=== PATIENT | male | born 1955 | race Caucasian/White ===

== ENCOUNTER 2020-12-16 08:24 | Outpatient (REF) | payer MEDICARE, MEDICAID, SELFPAY ==
[2020-12-16 11:49] LABS: Alanine Aminotransferase 24 U/L (0-40); Anion Gap 12 (12-20); Aspartate Amino Transferase 19 U/L (5-37); Blood Urea Nitrogen 10 mg/dL (9-16); Calcium 9.1 mg/dL (8.4-10.2); Carbon Dioxide 28 mmol/L (22-29); Chloride 105 mmol/L (96-108); Cholesterol 160 mg/dL; Estimated Glomerular Filt Rate > 60; Glucose Fasting 90 mg/dL (60-99); HDL Cholesterol 44 mg/dL; LDL Cholesterol Calculated 90 mg/dl; Potassium 4.7 mmol/L (3.3-5.1); Sodium 140 mmol/L (135-145); Triglycerides 131 mg/dL
[2020-12-16 13:44] LABS: PSA,Total (Free>4and<10) 1.96 ng/mL (0.00-4.00)
== END 2020-12-16 08:25 | disposition home or self-care (01) ==
LOC: HO.HMGCLDS 08:24
PROVIDERS: PCP Internal Medicine; Visit Provider Internal Medicine
DX: Z00.01 Encounter for general adult medical examination with abnormal findings (principal); I10 Essential (primary) hypertension
CPT/HCPCS: 36415; 80048; 80061; 84153; 84450; 84460

== ENCOUNTER → 2021-01-12 10:36 | Outpatient (BNVA) | payer MEDICARE, MEDICAID, SELFPAY | PROVIDERS: PCP Internal Medicine; Visit Provider Family Medicine Adult Medicine ==

== ENCOUNTER → 2021-07-20 13:33 | Outpatient (BNVA) | payer MEDICARE, MEDICAID, SELFPAY | PROVIDERS: PCP Internal Medicine; Visit Provider Orthopaedic Surgery | DX: M65.321 Trigger finger, right index finger (principal) | CPT/HCPCS: 99202 ==

== ENCOUNTER 2021-10-14 11:07 | Day surgery (SDC) | payer MEDICARE, MEDICAID, SELFPAY ==
[2021-10-14 12:07] VITALS: BP 159/80; PULSE 92; RESP 18; TEMP 37.4; O2SAT 96; BMI 24.3
--- NOTE | 2021-10-14 14:50 | MHC.SHP ---
Pre-Procedural Eval Section A Date of Service: 10/14/21 The patient is an INPATIENT: No Changes since office visit: No Cold of Flu in the past 2 weeks, No New Medical Problems, No Changes in Medication and No Patient answered all questions The History & Physical has been completed within 30 days and I have reviewed it.: Yes Section B Chief Complaint: Trigger finger, right index finger Allergies: Allergies Allergy/AdvReac Type Severity Reaction Status Date / Time Doxycycline Calcium Allergy Unknown Abdominal Verified 08/23/21 02:37 Pain Plan I have reviewed the history and physical and performed a pertinent physical examination on my patient. No changes have occurred unless specified.
--- NOTE | 2021-10-14 14:51 | W.PM.OPN ---
Operative Note Operative Note Date of Service: 10/14/21 Narrative: Operative Note Preop diagnosis: 1. right hand indexfinger Trigger finger Postop diagnosis: 1. type right index finger Trigger finger Procedure: 1. right index finger A1 kimberly release Surgeon: Evelyn Delarosa MD Anesthesia: local block using 1% lidocaine with epinephrine Findings: No locking or catching after A1 kimberly release EBL: Less than 5 mL Tourniquet time: None Specimens: None Complications: None Disposition: Brought to recovery room in stable condition Plan: Follow-up for 10-14 days for wound check and suture removal Indications: The patient is 65 years old, with a right index finger trigger finger that has been unresponsive to nonoperative management. The risks and benefits of operative treatment including but not limited to risk of damage to blood vessels, nerves, tendons, infection, persistent pain, persistent symptoms, recurrence or possible need for additional surgery were discussed with the patient and the patient wishes to proceed with surgery. Procedure: Once consent was obtained a local block was performed in the preop area using a combination of 1% lidocaine with epinephrine. The patient was then brought back to the operating suite and placed on the operative table in supine position. A tourniquet was applied to the proximal aspect of the right upper extremity and the limb was prepped and draped in a standard surgical fashion. Once assured that we had a good block, a 1.5 cm oblique incision was made centered over the A1 kimberly of the right index finger . The incision was made through the skin to the subcutaneous tissues using a #15 blade. Careful dissection was made down to the level of the A1 kimberly using tenotomy scissors, with care being taken to protect the nearby neurovascular structures. A longitudinal incision was made in the A1 kimberly 1st using a #15 blade, then using tenotomy scissors under direct visualization. The A1 kimberly was noted to be thickened. Following our A1 kimberly release, we no longer saw any locking or catching of the digit with flexion and extension. Once satisfied with our A1 kimberly release the wound was copiously irrigated with normal saline and hemostasis was obtained with a brief period of local pressure. The skin edges were reapproximated with some 5.0 nylon suture material and a sterile dressing was applied. The patient appears to have tolerated the procedure well and with no complications. All digits were well vascularized at the conclusion of the case.
[2021-10-14 15:28] VITALS: BP 161/97; PULSE 84; RESP 20; TEMP 36.7; O2SAT 96
== END 2021-10-14 15:41 | disposition home or self-care (01) ==
PROVIDERS: PCP Internal Medicine; Visit Provider Orthopaedic Surgery
PROC: (CPT 26055; principal; 2021-10-14 12:50)
DX: M65.321 Trigger finger, right index finger (principal); M19.011 Primary osteoarthritis, right shoulder; F41.8 Other specified anxiety disorders; R42 Dizziness and giddiness; Z79.891 Long term (current) use of opiate analgesic
CPT/HCPCS: 26055; J0171; J2795

== ENCOUNTER → 2021-10-27 11:40 | Outpatient (BNVA) | payer MEDICARE, MEDICAID, SELFPAY | PROVIDERS: PCP Internal Medicine; Visit Provider Orthopaedic Surgery | DX: Z09 Encounter for follow-up examination after completed treatment for conditions other than malignant neoplasm (principal); Z87.39 Personal history of other diseases of the musculoskeletal system and connective tissue | CPT/HCPCS: 99212 ==

== ENCOUNTER 2022-09-07 12:50 | Outpatient (AMB) | payer MEDICARE, MEDICAID, SELFPAY ==
--- NOTE | 2022-09-07 13:12 | MHC.PC.OV ---
Vital Signs 09/07/22 13:16 Height 5 ft 8 in Weight 168 lb BMI 25.5 BP 132/90 H Blood Pressure Location Rt brachial Position Sitting Pulse 75 Pulse Source Pulse Oximeter Pulse Oximetry (%) 98 Oxygen Delivery Method Room Air Intake Visit Reasons: Both ears blocked-ear cleaning Intake Note: Pt is here today for bilateral blocked ear Allergies Doxycycline Calcium Allergy (Unknown, Verified 09/07/22 13:59) Abdominal Pain Medication List - Last Reconciled 09/07/22 by Azeb Lee MD doxylamine succinate (Unisom (doxylamine)) 25 mg PO BEDTIME PRN hydroxyzine HCl 10 mg PO BID PRN melatonin 10 mg PO BEDTIME PRN multivitamin 1 tab PO DAILY Tobacco use date assessed: 09/07/22 Fall risk assessment: No Falls in past year Last assessed Fall Risk: 09/07/22 Dental Screening Dental Screen Date: 09/07/22 Did you have a dental visit in the last 12 months?: Yes Did you have a dental problem in the last 6 months where you did not have access to dental care?: No Was dental information given to patient?: Patient has dentist HPI Both ears blocked-ear cleaning HPI Details [age]-year-old male here today complaining of bilateral ear wax buildup, accompanied by slight decrease in hearing in both ears. Problems with gait or balance [facility] Medical History (Updated 09/07/22 @ 14:00 by Azeb Lee MD) Altered taste Anxiety Chronic use of opiate drug for therapeutic purpose COVID-19 vaccine series declined Depression with anxiety Essential hypertension Impacted cerumen, bilateral Lumbar spinal stenosis Positional lightheadedness Vaccination declined by patient Vertigo Surgical History History of arthroscopy of right shoulder S/P trigger finger release Family History Other No significant family history Social History Housing: House Patient Tobacco Use Status: Never used Tobacco e-Cigarette/Vaping Use: Never Used Second Hand Smoke Exposure: No service: No Current occupational status: retired Cognitive needs: No Hearing needs: No Vision needs: Yes Questionnaire Thrive Questionnaire Date Thrive assessed: 09/07/22 I am a: Patient What is your living situation today?: I have a steady place to live Within the past 12 months, did the food you bought not last and you didn't have the money to get more?: Never true Within the past 12 months, did you worry whether your food would run out before you got money to buy more?: Never true Do you have trouble paying for medicines?: No Do you have trouble getting transportation to medical appointments?: No Do you have trouble paying your heating and electricity bill?: No Do you have trouble taking care of your child, family member or friend?: No Do you have trouble with day-to-day activities such as bathing, preparing meals, shopping, managing finances, etc.?: No Are you currently unemployed and looking for a job?: No Are you interested in more education?: No AUDIT C Alcohol Use Questionnaire (AUDIT-C) 1. How often do you have a drink containing alcohol?: Monthly or less 2. How many drinks containing alcohol do you have on a typical day when you are drinking?: 1 or 2 3. How often do you have six or more drinks on one occasion?: Never Total Score: 1 ANNMARIE-7 AMB Questionnaire ANNMARIE-7 Date ANNMARIE - 7 assessed: 12/03/20 Source: Developed by Drs. Mason Devine, Becky Jay, Antonio Renee and colleagues, with an educational lexus from [employer]. Review of Systems Const All systems reviewed & are unremarkable except as noted in HPI and below Physical exam (Primary Care) Vital Signs: Last Vital Signs Pulse 75 09/07/22 13:16 BP 132/90 H 09/07/22 13:16 Pulse Ox 98 09/07/22 13:16 Oxygen Delivery Method Room Air 09/07/22 13:16 BMI result Body Mass Index 25.5 Tobacco/Smoking Status: Tobacco use Status Tobacco use date assessed 09/07/22 09/07/22 13:14 Patient Tobacco Use Status Never used Tobacco 09/07/22 13:14 e-Cigarette/Vaping Use Never Used 09/07/22 13:14 Thrive Assessment: Date of Thrive Assessment Date Thrive assessed 09/03/20 09/07/22 13:14 Const Other: Alert oriented x3, no acute distress noted ambulatory normal gait HENMT Ears: external ears normal and Abnormal EAC present excessive cerumen bilateral Assessment and Plan Assessment & Plan (1) Impacted cerumen, bilateral: Code(s): H61.23 - Impacted cerumen, bilateral Plan Cerumen successfully removed through warm ear irrigation, patient tolerated procedure well, advised to avoid putting Q-tips inside ear canal Coding Level of Care Code Est Pt Level 3 (55967) Diagnoses Impacted cerumen, bilateral H61.23
[2022-09-07 13:16] VITALS: BP 132/90; PULSE 75; O2SAT 98; BMI 25.5
== END 2022-09-07 14:10 | disposition home or self-care (01) ==
PROVIDERS: PCP Internal Medicine; Visit Provider Internal Medicine
DX: H61.23 Impacted cerumen, bilateral (principal)
CPT/HCPCS: 99213

== ENCOUNTER 2023-01-19 10:00 | Outpatient (AMB) | payer MEDICARE, MEDICAID, SELFPAY ==
[2023-01-19 10:15] VITALS: BP 130/85; PULSE 100; O2SAT 98; BMI 26.0
--- NOTE | 2023-01-19 10:15 | MHC.PC.OV ---
Vital Signs 01/19/23 10:15 Height 5 ft 8 in Weight 171 lb 2 oz BMI 26.0 BP 130/85 Blood Pressure Location Rt brachial Position Sitting Pulse 100 Pulse Source Pulse Oximeter Pulse Oximetry (%) 98 Oxygen Delivery Method Room Air Intake Visit Reasons: PE Intake Note: Pt is here for his Annual PE Allergies Doxycycline Calcium Allergy (Unknown, Verified 01/19/23 10:49) Abdominal Pain Medication List - Last Reconciled 01/19/23 by Azeb Lee MD doxylamine succinate (Unisom (doxylamine)) 25 mg PO BEDTIME PRN hydroxyzine HCl 10 mg PO BID PRN melatonin 10 mg PO BEDTIME PRN multivitamin 1 tab PO DAILY Tobacco use date assessed: 01/19/23 Fall risk assessment: No Falls in past year Last assessed Fall Risk: 01/19/23 Dental Screening Dental Screen Date: 01/19/23 Did you have a dental visit in the last 12 months?: Yes Did you have a dental problem in the last 6 months where you did not have access to dental care?: No Was dental information given to patient?: Patient has dentist HPI PE HPI Details 67 year old male, here today for his physical exam. He has been complaining of intermittent episodes of positional lightheadedness especially when he stands up quickly. Would like a referral to [facility] in [place] for vestibular rehab. Referral sent. He is up-to-date with his COVID vaccine, Prevnar 20 and flu shot, but has not yet had his RSV vaccine or shingles vaccination. He states that he is up-to-date with his screening colonoscopy , was done by Dr. Sinha. [facility] Medical History (Updated 01/19/23 @ 11:09 by Azeb Lee MD) Positional lightheadedness Anxiety Chronic use of opiate drug for therapeutic purpose Vaccination declined by patient Depression with anxiety Lumbar spinal stenosis Essential hypertension Vertigo Surgical History S/P trigger finger release History of arthroscopy of right shoulder Family History Other No significant family history Social History Housing: House Patient Tobacco Use Status: Never used Tobacco e-Cigarette/Vaping Use: Never Used Second Hand Smoke Exposure: No service: No Current occupational status: retired Cognitive needs: No Hearing needs: No Vision needs: Yes Questionnaire PHQ-9 Over the last 2 weeks, how often have you been bothered by any of the following problems? 1. Little interest or pleasure in doing things: several days 2. Feeling down, depressed, or hopeless: not at all 3. Trouble falling or staying asleep, or sleeping too much: nearly every day 4. Feeling tired or having little energy: several days 5. Poor appetite or overeating: more than half the days 6. Feeling bad about yourself - or that you are a failure or have let yourself or your family down: not at all 7. Trouble concentrating on things, such as reading the newspaper or watching television: not at all 8. Moving or speaking so slowly that other people could have noticed. Or the opposite - being so fidgety or restless that you have been moving around a lot more than usual: not at all 9. Thoughts that you would be better off or of hurting yourself in some way: not at all Total score: 7 Depression Screening Interpretation: Negative Depression Screening Done: Yes 92999 - PHQ-9 Billing: Yes Source: Developed by Drs. Mason Devine, Becky Jay, Antonio Renee and colleagues, with an educational lexus from [employer]. Thrive Questionnaire Date Thrive assessed: 01/19/23 I am a: Patient What is your living situation today?: I have a steady place to live Within the past 12 months, did the food you bought not last and you didn't have the money to get more?: Never true Within the past 12 months, did you worry whether your food would run out before you got money to buy more?: Never true Do you have trouble paying for medicines?: No Do you have trouble getting transportation to medical appointments?: No Do you have trouble paying your heating and electricity bill?: No Do you have trouble taking care of your child, family member or friend?: No Do you have trouble with day-to-day activities such as bathing, preparing meals, shopping, managing finances, etc.?: No Are you currently unemployed and looking for a job?: No Are you interested in more education?: No AUDIT C Alcohol Use Questionnaire (AUDIT-C) 1. How often do you have a drink containing alcohol?: Monthly or less 2. How many drinks containing alcohol do you have on a typical day when you are drinking?: 1 or 2 3. How often do you have six or more drinks on one occasion?: Never Total Score: 1 ANNMARIE-7 AMB Questionnaire ANNMARIE-7 Date ANNMARIE - 7 assessed: 01/19/23 Feeling nervous, anxious, or on edge: 1 = Several days Not being able to stop or control worryin = Not at all Worrying too much about different things: 0 = Not at all Trouble relaxin = Not at all Being so restless that it is hard to sit still: 0 = Not at all Becoming easily annoyed or irritable: 0 = Not at all Feeling afraid as if something awful might happen: 0 = Not at all Total ANNMARIE-7 score (0-4 normal; 5-9 mild; 10-14 moderate; 15-21 severe): 1 Source: Developed by Drs. Mason Devine, Becky Jay, Antonio Renee and colleagues, with an educational lexus from [employer]. ANNMARIE-7 Assessment Billing ANNMARIE-7 Assessment Tool: ANNMARIE-7 Assessment 02287 Review of Systems Const Denies body aches, Denies fever(s) and Denies frequent falls Eyes Details: Wears corrective lenses, followed at [facility] Denies change in vision ENT Reports no additional complaints Card Denies chest pain, Denies lightheadedness and Denies dyspnea Resp Denies cough and Denies dyspnea GI Denies abdominal pain, Denies change in bowel habits and Denies heartburn Reports no additional complaints Musc Reports stiffness (Fingers in right) Skin/Breast Denies lesions and Denies rash Neuro Reports as per HPI and Denies frequent falls Psych Reports no additional complaints Endo Reports no additional complaints Ronnie/Lymph Reports no additional complaints Aller/Immun Reports no additional complaints Physical exam (Primary Care) Vital Signs: Last Vital Signs Pulse 100 01/19/23 10:15 BP 130/85 01/19/23 10:15 Pulse Ox 98 01/19/23 10:15 Oxygen Delivery Method Room Air 01/19/23 10:15 BMI result Body Mass Index 26.0 Tobacco/Smoking Status: Tobacco use Status Tobacco use date assessed 01/19/23 01/19/23 10:20 Patient Tobacco Use Status Never used Tobacco 01/19/23 10:20 e-Cigarette/Vaping Use Never Used 01/19/23 10:20 PHQ-9: PHQ-9 Score PHQ-9: Total score 2 01/19/23 11:12 Depression Screening Interpretation: Negative Thrive Assessment: Date of Thrive Assessment Date Thrive assessed 09/07/22 01/19/23 10:20 Const General: comfortable, no acute distress and alert Orientation/consciousness: patient oriented x3 HENMT Ears: external ears normal, TM's normal bilaterally and EAC's normal General nose exam: Normal external nose present and No nasal discharge present Mouth: Normal oral and palatal mucosa present, oropharynx normal and moist mucous membranes Eyes General: appearance normal, both eyes and all related structures Conjunctivae: conjunctivae normal Sclerae: sclerae normal Pupils: Equal, round and reactive pupils present EOM: EOMs intact bilaterally Neck Neck: Yes full ROM, Yes no lymphadenopathy and Yes supple Resp Effort & Inspection: normal respiratory effort and able to speak in complete sentences Auscultation: clear to auscultation bilaterally Cardio Rate: regular rate Rhythm: regular rhythm Heart sounds: S1 normal heart sound present and S2 normal heart sound present GI Palpation (GI): Soft to palpation, nontender, no guarding and no masses Auscultation: normal bowel sounds Back/Spine/Pelvis Back: No back tenderness Skin General skin exam: no rashes or lesions noted Neuro General: patient oriented x3, gait normal, tone normal, moves all extremities, Normal light touch and pain sensation and no focal motor deficits Cranial nerves: Yes CN's II-XII intact bilaterally and Yes Equal, round and reactive pupils present Cognition (Neuro): normal cognition Extrem General: Yes full ROM, Yes no joint enlargement, Yes no clubbing, cyanosis or edema and Yes no calf tenderness Psych Appearance: grossly normal and well kempt Mental Status: mental status grossly normal Speech and movement: Normal speech and movement present Affect: normal affect Attitude: cooperative Assessment and Plan Assessment & Plan (1) Annual visit for general adult medical examination with abnormal findings: Code(s): Z00.01 - Encounter for general adult medical examination with abnormal findings Plan: Will check appropriate labs. Continue record dental visit every 6 months and regular eye exams, at least every 2 years. Take adequate calcium in diet and vitamin-D 3 at 2000 IU per cap once a day, in addition to weight-bearing exercises to help maintain good muscle tone and weight control. Instructed to do self testicular exam to check for any mass, up-to-date with his COVID vaccine booster, flu shot and pneumonia vaccine, reminded to get his RSV vaccine and shingles vaccination. Patient states that he is up-to-date with his screening colonoscopy, seen by Dr. Sinha (2) Positional lightheadedness: Code(s): R42 - Dizziness and giddiness Plan: Referral already ordered for [facility] in [place] for vestibular rehab, to rule out benign positional vertigo (3) Essential hypertension: Code(s): I10 - Essential (primary) hypertension Plan: Blood pressure at goal of less than 130/80. Reinforced importance of following a low sodium diet, getting regular exercise, and lowering stress levels. Orders: Orders Lipid Panel Today F41.9 - Anxiety disorder, unspecified, I10 - Essential (primary) hypertension, R42 - Dizziness and giddiness, Z00.01 - Encounter for general adult medical examination with abnormal findings PSA,Total (Free>4and<10) Today F41.9 - Anxiety disorder, unspecified, I10 - Essential (primary) hypertension, R42 - Dizziness and giddiness, Z00.01 - Encounter for general adult medical examination with abnormal findings Aspartate Amino Transferase Today F41.9 - Anxiety disorder, unspecified, I10 - Essential (primary) hypertension, R42 - Dizziness and giddiness, Z00.01 - Encounter for general adult medical examination with abnormal findings Glucose Fasting Today F41.9 - Anxiety disorder, unspecified, I10 - Essential (primary) hypertension, R42 - Dizziness and giddiness, Z00.01 - Encounter for general adult medical examination with abnormal findings PT Evaluation and Treatment Today R42 - Dizziness and giddiness Complete Blood Count Auto Diff Today F41.9 - Anxiety disorder, unspecified, I10 - Essential (primary) hypertension, R42 - Dizziness and giddiness, Z00.01 - Encounter for general adult medical examination with abnormal findings Alanine Aminotransferase Today F41.9 - Anxiety disorder, unspecified, I10 - Essential (primary) hypertension, R42 - Dizziness and giddiness, Z00.01 - Encounter for general adult medical examination with abnormal findings Vitamin D 25-OH Total Today F41.9 - Anxiety disorder, unspecified, I10 - Essential (primary) hypertension, R42 - Dizziness and giddiness, Z00.01 - Encounter for general adult medical examination with abnormal findings Coding Level of Care Code Est Pt Prev Care >65y(50312) Diagnoses Annual visit for general adult medical examination with abnormal findings Z00.01 Positional lightheadedness R42 Essential hypertension I10 Additional Codes ANNMARIE-7 Assessment Billing - ANNMARIE-7 Assessment Tool: ANNMARIE-7 Assessment 72779 ([id number])
== END 2023-01-19 12:57 | disposition home or self-care (01) ==
LOC: HO.HMGC 10:00
PROVIDERS: PCP Internal Medicine; Visit Provider Internal Medicine
DX: Z00.00 Encounter for general adult medical examination without abnormal findings (principal); R42 Dizziness and giddiness; I10 Essential (primary) hypertension
CPT/HCPCS: 99397

== ENCOUNTER 2023-04-26 13:30 | Outpatient (AMB) | payer MEDICARE, MEDICAID, SELFPAY ==
--- NOTE | 2023-04-26 13:31 | MHC.OFFWIV ---
Intake Vital Signs 04/26/23 13:32 Height 5 ft 8 in Weight 174 lb BMI 26.5 BP 130/86 Blood Pressure Location Lt brachial Position Sitting Pulse 100 Pulse Source Pulse Oximeter Temp 97.9 F Temp Source Oral Pulse Oximetry (%) 98 Oxygen Delivery Method Room Air Intake Visit Reasons: EP Jaw pain 1 month Intake Note: pt is here jaw pain on the right side of his mouth for a little over a month after he saw the dentist and pt says it only happens when he chews no ear pain and when he bites down he can feel in his back jaw on the right side Patient Tobacco Use Status: Never used Tobacco Allergies Doxycycline Calcium Allergy (Unknown, Verified 04/26/23 13:54) Abdominal Pain Medication List - Last Reconciled 04/26/23 by Destin Kitchen MD doxylamine succinate (Unisom (doxylamine)) 25 mg PO BEDTIME PRN hydroxyzine HCl 10 mg PO BID PRN melatonin 10 mg PO BEDTIME PRN meloxicam 15 mg PO DAILY multivitamin 1 tab PO DAILY HPI EP Jaw pain 1 month HPI Details 67-year-old male presents to the office for a sick visit. Patient reports pain in the jaw. Symptoms started after he went to see a oral hygienist in April. Pain is present when he clenches his teeth or moves his lower jaw side to side. No fall or injury. [facility] Medical History (Updated 01/19/23 @ 11:09 by Azeb Lee MD) Positional lightheadedness Anxiety Chronic use of opiate drug for therapeutic purpose Vaccination declined by patient Depression with anxiety Lumbar spinal stenosis Essential hypertension Vertigo Surgical History S/P trigger finger release History of arthroscopy of right shoulder Family History Other No significant family history Social History Housing: House Patient Tobacco Use Status: Never used Tobacco e-Cigarette/Vaping Use: Never Used Second Hand Smoke Exposure: No service: No Current occupational status: retired Cognitive needs: No Hearing needs: No Vision needs: Yes Physical Exam Vital Signs: Last Vital Signs Temp 97.9 F 04/26/23 13:32 Pulse 100 04/26/23 13:32 BP 130/86 04/26/23 13:32 Pulse Ox 98 04/26/23 13:32 Oxygen Delivery Method Room Air 04/26/23 13:32 BMI result Body Mass Index 26.5 HEENT Other: Face: No TMJ joint tenderness. Discomfort on palpation at the angle of the jaw on the right side. Oral cavity: Using a gloved finger, floor of the mouth was examined. No swelling on lump palpable. No tender area identified. Assessment & Plan Assessment & Plan (1) TMJ dysfunction: Code(s): M26.609 - Unspecified temporomandibular joint disorder, unspecified side Plan: Possibility is either TMJ dysfunction or a blocked parotid gland. Meloxicam called in. If symptoms do not improve to follow-up here. Medications: New meloxicam 15 mg PO DAILY 14 tabs 0RF Coding Level of Care Code Est Pt Level 3 (23383) Diagnoses TMJ dysfunction M26.609
[2023-04-26 13:32] VITALS: BP 130/86; PULSE 100; TEMP 36.6; O2SAT 98; BMI 26.5
== END 2023-04-26 14:53 | disposition home or self-care (01) ==
PROVIDERS: PCP Internal Medicine; Visit Provider Internal Medicine
DX: M26.609 Unspecified temporomandibular joint disorder, unspecified side (principal)
CPT/HCPCS: 99213

== ENCOUNTER 2023-05-04 12:32 | Outpatient (AMB) | payer MEDICARE, MEDICAID, SELFPAY ==
[2023-05-04 12:37] VITALS: BP 132/80; PULSE 96; O2SAT 97; BMI 26.3
--- NOTE | 2023-05-04 12:37 | MHC.PC.OV ---
Vital Signs 05/04/23 12:37 Height 5 ft 8 in Weight 173 lb 2 oz BMI 26.3 BP 132/80 Blood Pressure Location Lt brachial Position Sitting Pulse 96 Pulse Source Pulse Oximeter Pulse Oximetry (%) 97 Oxygen Delivery Method Room Air Intake Visit Reasons: skin concerns request ref derm Allergies Doxycycline Calcium Allergy (Unknown, Verified 05/04/23 12:57) Abdominal Pain Medication List - Last Reconciled 05/04/23 by Azeb Lee MD doxylamine succinate (Unisom (doxylamine)) 25 mg PO BEDTIME PRN hydroxyzine HCl 10 mg PO BID PRN melatonin 10 mg PO BEDTIME PRN meloxicam 15 mg PO DAILY multivitamin 1 tab PO DAILY Tobacco use date assessed: 05/04/23 Fall risk assessment: No Falls in past year Last assessed Fall Risk: 05/04/23 Dental Screening Dental Screen Date: 05/04/23 Did you have a dental visit in the last 12 months?: Yes Did you have a dental problem in the last 6 months where you did not have access to dental care?: No Was dental information given to patient?: Patient has dentist HPI skin concerns request ref derm HPI Details 67-year-old male here today requesting referral to Dermatology. He has been feeling raised bumps on his scalp, nonpruritic, which has been present now for the last several weeks. Patient states that he would sometimes be be able to extrude an master jelly like substance from 1 of the lesions. [facility] Medical History (Updated 05/04/23 @ 13:01 by Azeb Lee MD) Skin lesion of scalp Positional lightheadedness Anxiety Chronic use of opiate drug for therapeutic purpose Vaccination declined by patient Depression with anxiety Lumbar spinal stenosis Essential hypertension Vertigo Surgical History S/P trigger finger release History of arthroscopy of right shoulder Family History Other No significant family history Social History Housing: House Patient Tobacco Use Status: Never used Tobacco e-Cigarette/Vaping Use: Never Used Second Hand Smoke Exposure: No service: No Current occupational status: retired Cognitive needs: No Hearing needs: No Vision needs: Yes Questionnaire Thrive Questionnaire Date Thrive assessed: 01/19/23 AUDIT C Alcohol Use Questionnaire (AUDIT-C) 1. How often do you have a drink containing alcohol?: Monthly or less 2. How many drinks containing alcohol do you have on a typical day when you are drinking?: 1 or 2 3. How often do you have six or more drinks on one occasion?: Never Total Score: 1 Score Reviewed/Action Taken: Yes ANNMARIE-7 AMB Questionnaire ANNMARIE-7 Date ANNMARIE - 7 assessed: 01/19/23 Source: Developed by Drs. Mason Devine, Becky Jay, Antonio Renee and colleagues, with an educational lexus from [employer]. Review of Systems Const All systems reviewed & are unremarkable except as noted in HPI and below Physical exam (Primary Care) Vital Signs: Last Vital Signs Pulse 96 05/04/23 12:37 BP 132/80 05/04/23 12:37 Pulse Ox 97 05/04/23 12:37 Oxygen Delivery Method Room Air 05/04/23 12:37 BMI result Body Mass Index 26.3 Tobacco/Smoking Status: Tobacco use Status Tobacco use date assessed 05/04/23 05/04/23 12:41 Patient Tobacco Use Status Never used Tobacco 05/04/23 12:41 e-Cigarette/Vaping Use Never Used 05/04/23 12:41 Thrive Assessment: Date of Thrive Assessment Date Thrive assessed 01/19/23 05/04/23 12:41 Const Other: Alert oriented x3, no acute distress noted ambulatory normal HENMT Other: Slightly raised erythematous patch on parietal area of scalp on the left, with brownish macules scattered all over scalp Neck Neck: Yes full ROM, Yes no lymphadenopathy and Yes supple Assessment and Plan Assessment & Plan (1) Skin lesion of scalp: Code(s): L98.9 - Disorder of the skin and subcutaneous tissue, unspecified (2) Skin cancer screening: Code(s): Z12.83 - Encounter for screening for malignant neoplasm of skin Plan Referral to Dermatology ordered, patient has been seen initially at [facility] and referred there for further evaluation . Patient strongly encouraged to wear sunscreen whenever outside and reapply every 2-3 hours Orders: Referrals Dermatology Referral L98.9 - Disorder of the skin and subcutaneous tissue, unspecified, Z12.83 - Encounter for screening for malignant neoplasm of skin Coding Level of Care Code Est Pt Level 3 (13692) Diagnoses Skin lesion of scalp L98.9 Skin cancer screening Z12.83
== END 2023-05-04 14:28 | disposition home or self-care (01) ==
LOC: HO.HMGC 12:32
PROVIDERS: PCP Internal Medicine; Visit Provider Internal Medicine
DX: L98.9 Disorder of the skin and subcutaneous tissue, unspecified (principal); Z12.83 Encounter for screening for malignant neoplasm of skin
CPT/HCPCS: 99213

== ENCOUNTER 2023-07-06 10:14 | Outpatient (AMB) | payer MEDICARE, MEDICAID, SELFPAY ==
[2023-07-06 10:23] VITALS: BP 120/70; PULSE 87; TEMP 36.3; O2SAT 97; BMI 26.3
--- NOTE | 2023-07-06 10:23 | MHC.OFFWIV ---
Intake Vital Signs 07/06/23 10:23 Height 5 ft 8 in Weight 173 lb BMI 26.3 BP 120/70 Blood Pressure Location Lt brachial Position Sitting Pulse 87 Pulse Source Pulse Oximeter Temp 97.4 F Temp Source Temporal Artery Scan Pulse Oximetry (%) 97 Oxygen Delivery Method Room Air Intake Visit Reasons: EST/blood in stool X 4 days Intake Note: pt is here today for blood in stool started 4 days ago Patient Tobacco Use Status: Never used Tobacco Allergies Doxycycline Calcium Allergy (Unknown, Verified 07/06/23 10:27) Abdominal Pain Do you need a note to return to daycare/school/sports/work: No HPI HPI Comments History of Present Illness Details 67 y/o male patient who presents to walk in clinic with c/o rectal bleeding x 4 days. Pt reports noticing bright red blood on the toilet paper after wiping. Reports GI upset with loose stools for the past 4 days. Up to date with colonoscopy. Denies h/o colon CA. [facility] Medical History (Updated 05/04/23 @ 13:01 by Azeb Lee MD) Skin lesion of scalp Positional lightheadedness Anxiety Chronic use of opiate drug for therapeutic purpose Vaccination declined by patient Depression with anxiety Lumbar spinal stenosis Essential hypertension Vertigo Surgical History S/P trigger finger release History of arthroscopy of right shoulder Family History Other No significant family history Social History Housing: House Patient Tobacco Use Status: Never used Tobacco e-Cigarette/Vaping Use: Never Used Second Hand Smoke Exposure: No service: No Current occupational status: retired Cognitive needs: No Hearing needs: No Vision needs: Yes Review of Systems Const All systems reviewed & are unremarkable except as noted in HPI and below Physical Exam Vital Signs: Last Vital Signs Temp 97.4 F 07/06/23 10:23 Pulse 87 07/06/23 10:23 BP 120/70 07/06/23 10:23 Pulse Ox 97 07/06/23 10:23 Oxygen Delivery Method Room Air 07/06/23 10:23 BMI result Body Mass Index 26.3 Const General: comfortable and no acute distress Orientation/consciousness: patient oriented x3 Other: Rectal exam deferred. Neuro General: patient oriented x3, gait normal and moves all extremities Psych Speech and movement: Normal speech and movement present Assessment & Plan Assessment & Plan (1) Rectal bleeding: Code(s): K62.5 - Hemorrhage of anus and rectum Plan: - ? Hemorrhoids - High fiber diet - Drink enough water Medications: New hydrocortisone acetate (Anusol-HC) 25 mg [place] BEDTIME 2 weeks 24 ea 1RF K62.5 - Hemorrhage of anus and rectum Coding Level of Care Code Est Pt Level 3 (14767) Diagnoses Rectal bleeding K62.5 Time Spent (min) 15
== END 2023-07-06 11:36 | disposition home or self-care (01) ==
PROVIDERS: PCP Internal Medicine; Visit Provider Nurse Practitioner Family
DX: K62.5 Hemorrhage of anus and rectum (principal)
CPT/HCPCS: 99213

== ENCOUNTER 2024-03-05 12:52 | Outpatient (AMB) | payer MEDICARE, MEDICAID, SELFPAY ==
[2024-03-05 13:16] VITALS: BP 134/74; PULSE 93; RESP 14; TEMP 36.6; O2SAT 97; BMI 26.8
--- NOTE | 2024-03-05 13:16 | A.OFFPC_ITS ---
Vital Signs 03/05/24 13:16 Height 5 ft 8 in Weight 176 lb BMI 26.8 BP 134/74 Blood Pressure Location Lt brachial Position Sitting Respiration 14 Pulse 93 Pulse Source Pulse Oximeter Temp 97.9 F Temp Source Oral Pulse Oximetry (%) 97 Oxygen Delivery Method Room Air Intake Visit Reasons: PE Intake Note: Pt is here today for his PE Allergies Doxycycline Calcium Allergy (Unknown, Verified 03/05/24 13:54) Abdominal Pain Medication List - Last Reconciled 03/05/24 by Azeb Lee MD doxylamine succinate (Unisom (doxylamine)) 25 mg PO BEDTIME PRN hydroxyzine HCl 10 mg PO BID PRN melatonin 10 mg PO BEDTIME PRN meloxicam 15 mg PO DAILY multivitamin 1 tab PO DAILY Tobacco use date assessed: 03/05/24 Fall risk assessment: No Falls in past year Last assessed Fall Risk: 03/05/24 Dental Screening Dental Screen Date: 03/05/24 Did you have a dental visit in the last 12 months?: Yes Did you have a dental problem in the last 6 months where you did not have access to dental care?: Yes Was dental information given to patient?: Patient has dentist HPI PE HPI Details 68-year-old male here today for physical exam. He has hypertension currently stable and controlled with diet. He declines getting any colon cancer screenings. Has had COVID vaccinations but does not want to get the booster, up-to-date with his flu vaccine and pneumococcal vaccination. Patient however has not yet had his shingles vaccine. He states that he has been having frequent anxiety attacks. States that he has friends have mostly moved away from the area and do already or have passed. He has been taking hydroxyzine 10 mg twice a day as needed for anxiety attacks, which helps temporarily. [facility] Medical History (Updated 03/11/24 @ 01:03 by Azeb Lee MD) Generalized anxiety disorder Chronic use of opiate drug for therapeutic purpose Vaccination declined by patient Lumbar spinal stenosis Essential hypertension Surgical History S/P trigger finger release History of arthroscopy of right shoulder Family History Other No significant family history Social History Housing: House Patient Tobacco Use Status: Never used Tobacco e-Cigarette/Vaping Use: Never Used Second Hand Smoke Exposure: No service: No Current occupational status: retired Cognitive needs: No Hearing needs: No Vision needs: Yes Questionnaire PHQ-9 Over the last 2 weeks, how often have you been bothered by any of the following problems? 1. Little interest or pleasure in doing things: not at all 2. Feeling down, depressed, or hopeless: not at all 3. Trouble falling or staying asleep, or sleeping too much: several days 4. Feeling tired or having little energy: not at all 5. Poor appetite or overeating: not at all 6. Feeling bad about yourself - or that you are a failure or have let yourself or your family down: not at all 7. Trouble concentrating on things, such as reading the newspaper or watching television: several days 8. Moving or speaking so slowly that other people could have noticed. Or the opposite - being so fidgety or restless that you have been moving around a lot more than usual: nearly every day 9. Thoughts that you would be better off or of hurting yourself in some way: not at all Total score: 5 Depression Screening Interpretation: Negative Depression Screening Done: Yes 74916 - PHQ-9 Billing: Yes Source: Developed by Drs. Mason Devine, Becky Jay, Antonio Renee and colleagues, with an educational lexus from [employer]. Thrive Questionnaire Date Thrive assessed: 03/05/24 I am a: Patient What is your living situation today?: I choose not to answer this question Within the past 12 months, did the food you bought not last and you didn't have the money to get more?: I choose not to answer this question Within the past 12 months, did you worry whether your food would run out before you got money to buy more?: I choose not to answer this question Do you have trouble paying for medicines?: I choose not to answer this question Do you have trouble getting transportation to medical appointments?: I choose not to answer this question Do you have trouble paying your heating and electricity bill?: I choose not to answer this question Do you have trouble taking care of your child, family member or friend?: I choose not to answer this question Do you have trouble with day-to-day activities such as bathing, preparing meals, shopping, managing finances, etc.?: I choose not to answer this question Are you currently unemployed and looking for a job?: I choose not to answer this question Are you interested in more education?: I choose not to answer this question Please select the resources that you would like help with: None THRIVE Score: 0 AUDIT C Alcohol Use Questionnaire (AUDIT-C) 1. How often do you have a drink containing alcohol?: 2-3 times a week 2. How many drinks containing alcohol do you have on a typical day when you are drinking?: 3 or 4 3. How often do you have six or more drinks on one occasion?: Less than monthly Total Score: 5 ANNMARIE-7 AMB Questionnaire ANNMARIE-7 Date ANNMARIE - 7 assessed: 03/05/24 Feeling nervous, anxious, or on edge: 1 = Several days Not being able to stop or control worryin = Several days Worrying too much about different things: 2 = More than half the days Trouble relaxin = Not at all Being so restless that it is hard to sit still: 0 = Not at all Becoming easily annoyed or irritable: 1 = Several days Feeling afraid as if something awful might happen: 1 = Several days Total ANNMARIE-7 score (0-4 normal; 5-9 mild; 10-14 moderate; 15-21 severe): 6 Source: Developed by Drs. Mason Devine, Becky Jay, Antonio Renee and colleagues, with an educational lexus from [employer]. ANNMARIE-7 Assessment Billing ANNMARIE-7 Assessment Tool: ANNMARIE-7 Assessment 26573 Review of Systems Const Denies body aches, Denies fever(s) and Denies frequent falls Eyes Details: Goes to [facility] Denies change in vision ENT Reports no additional complaints Card Denies chest pain, Denies lightheadedness and Denies dyspnea Resp Denies cough and Denies dyspnea GI Denies abdominal pain, Denies change in bowel habits and Denies heartburn Reports no additional complaints Musc Reports stiffness (Fingers in right) Skin/Breast Denies lesions and Denies rash Neuro Details: currently being seen by [facility], has appt on 06/2024 Reports as per HPI and Denies frequent falls Psych Reports no additional complaints Endo Reports no additional complaints Ronnie/Lymph Reports no additional complaints Aller/Immun Reports no additional complaints Physical exam (Primary Care) Vital Signs: Last Vital Signs Temp 97.9 F 03/05/24 13:16 Pulse 93 03/05/24 13:16 Resp 14 03/05/24 13:16 BP 134/74 03/05/24 13:16 Pulse Ox 97 03/05/24 13:16 Oxygen Delivery Method Room Air 03/05/24 13:16 BMI result Body Mass Index 26.8 Tobacco/Smoking Status: Tobacco use Status Tobacco use date assessed 03/05/24 03/05/24 13:29 Patient Tobacco Use Status Never used Tobacco 03/05/24 13:19 e-Cigarette/Vaping Use Never Used 03/05/24 13:19 PHQ-9: PHQ-9 Score PHQ-9: Total score 4 03/05/24 13:57 Depression Screening Interpretation: Negative Thrive Assessment: Date of Thrive Assessment Date Thrive assessed 03/05/24 03/05/24 13:19 Const General: comfortable, no acute distress and alert Orientation/consciousness: patient oriented x3 HENMT Ears: external ears normal, TM's normal bilaterally and EAC's normal General nose exam: Normal external nose present and No nasal discharge present Mouth: Normal oral and palatal mucosa present, oropharynx normal and moist mucous membranes Eyes General: appearance normal, both eyes and all related structures Conjunctivae: conjunctivae normal Sclerae: sclerae normal Pupils: Equal, round and reactive pupils present EOM: EOMs intact bilaterally Neck Neck: Yes full ROM, Yes no lymphadenopathy and Yes supple Resp Effort & Inspection: normal respiratory effort and able to speak in complete sentences Auscultation: clear to auscultation bilaterally Cardio Rate: regular rate Rhythm: regular rhythm Heart sounds: S1 normal heart sound present and S2 normal heart sound present GI Palpation (GI): Soft to palpation, nontender, no guarding and no masses Auscultation: normal bowel sounds Male General Exam: Yes normal external exam Back/Spine/Pelvis Back: No back tenderness Skin General skin exam: no rashes or lesions noted Neuro General: patient oriented x3, gait normal, tone normal, moves all extremities, Normal light touch and pain sensation and no focal motor deficits Cranial nerves: Yes CN's II-XII intact bilaterally and Yes Equal, round and reactive pupils present Cognition (Neuro): normal cognition Extrem General: Yes full ROM, Yes no joint enlargement, Yes no clubbing, cyanosis or edema and Yes no calf tenderness Psych Appearance: grossly normal and well kempt Mental Status: mental status grossly normal Speech and movement: Normal speech and movement present Affect: normal affect Attitude: cooperative Coding Level of Care Code Est Pt Prev Care >65y(19389) Diagnoses Annual visit for general adult medical examination with abnormal findings Z Generalized anxiety disorder F41.1 Additional Codes PHQ-9 - 00632 - PHQ-9 Billing: Yes ([id number]) ANNMARIE-7 Assessment Billing - ANNMARIE-7 Assessment Tool: ANNMARIE-7 Assessment 95120 ([id number]) Assessment & Plan Assessment & Plan (1) Annual visit for general adult medical examination with abnormal findings: Code(s): Z. - Encounter for general adult medical examination with abnormal findings Plan: Will check appropriate labs. Recommended dental visit every 6 months and regular eye exams, at least every 2 years, sees [facility]. Take adequate calcium in diet and vitamin-D 3 at 2000 IU per cap once a day, in addition to weight-bearing exercises to help maintain good muscle tone and weight control. Instructed to do self-testicular exam check for any mass. Patient declines getting any further vaccinations and does not want to get any colon cancer screening (2) Generalized anxiety disorder: Code(s): F41.1 - Generalized anxiety disorder Category: Medical Plan: Psychiatric referral ordered Orders: Orders PSA,Total (Free>4and<10) 03/05/24 Z00.01 - Encounter for general adult medical examination with abnormal findings, Z12.5 - Encounter for screening for maligna nt neoplasm of prostate, Z13.1 - Encounter for screening for diabetes mellitus, Z13.220 - Encounter for screening for lipoid disorders Hemoglobin and Hematocrit 03/05/24 Z00.01 - Encounter for general adult medical examination with abnormal findings, Z12.5 - Encounter for screening for malignant neoplasm of prostate, Z13.1 - Encounter for screening for diabetes mellitus, Z13.220 - Encounter for screening for lipoid disorders Lipid Panel 03/05/24 Z00.01 - Encounter for general adult medical examination with abnormal findings, Z12.5 - Encounter for screening for malignant neoplasm of prostate, Z13.1 - Encounter for screening for diabetes mellitus, Z13.220 - Encounter for screening for lipoid disorders Basic Metabolic Panel Fasting 03/05/24 Z00.01 - Encounter for general adult medical examination with abnormal findings, Z12.5 - Encounter for screening for malignant neoplasm of prostate, Z13.1 - Encounter for screening for diabetes mellitus, Z13.220 - Encounter for screening for lipoid disorders Referrals Psychiatry Referral F41.1 - Generalized anxiety disorder
--- OUTSIDE RECORDS SUMMARY | 2024-03-05 13:43 | XMS_ITS | Clinical Summary ---
Author Organization [facility] it Address [address] [place] [address] Care Team Providers Care Infantryman Name Role Phone Unavailable Primary Care Provider Unavailabl e Medical History Medical History Date Comments Backache, unspecified 02/20/2005 DX:Backach e, unspecified Unspecified asthma(493.90) 02/20/2005 DX:Un specified asthma(493.90) Pain in joint, shoulder region 02/20/2005 D X:Pain in joint, shoulder region Family History Medical History Relation Name Comments Heart attack Father Other Dermatological Disorders Father mULT. NONMELANOTIC CUT. MALIG. BY HX Asthma Mother Relation Name Status Comments Father Mother Social History Tobacco Use Types Packs/Day Years Used Date Smoking Tobacco: Never Alcohol Use Standard Drinks/Week Comments Not Asked 0 (1 standard drink = 0.6 oz pur e alcohol) Sex and Gender Information Value Date Recorded Sex Assigned at Not on file Gender Identity Not on file Sexual Orientation Not on file Obstetrics History Plan of Treatment Health Maintenance Due Date Last Done Comments DTaP,Tdap,and Td Vaccines (1 - Tdap) 1973 Zoster Vaccines (1 of 2) 2004 Pneumococcal Vaccine: 65+ Years (1 of 1 - PCV) 11/24/2019 COVID-19 Vaccine ( - 2023-2 5 season) 2023 Influenza Vaccine (#1) 2023 6, 12/10/2004 RSV Immunization Patients 60 + Years Old (1 - 1-dose 75+ series) 2029 HIB Vaccines Aged Out No longer eligi ble based on patient's age to complete this topic HPV Vaccines Aged Out No longer eligi ble based on patient's age to complete this topic Hepatitis A Vaccines Aged Out No long er eligible based on patient's age to complete this topic Hepatitis B Vaccines Aged Out No long er eligible based on patient's age to complete this topic IPV Vaccines Aged Out No longer eligi ble based on patient's age to complete this topic MMR Vaccines Aged Out No longer eligi ble based on patient's age to complete this topic Meningococcal ACWY Vaccine Aged Out N o longer eligible based on patient's age to complete this topic RSV Immunization Patients Under 20 months Aged Out No longer eligible b ased on patient's age to complete this topic Varicella Vaccines Aged Out No longer eligible based on patient's age to complete this topic
--- OUTSIDE RECORDS SUMMARY | 2024-03-05 13:43 | XMS_ITS | Clinical Summary ---
Author Organization [employer] Address [address] [place] [address] 7[address] [place] [address] Care Team Providers Care Gear Tester Name Role Phone Unavailable Primary Care Provider Unavailabl e Allergies No known active allergies Medications hydrOXYzine HCl (Atarax) 10 MG tablet Take by mouth. Active Active Problems No known active problems Encounters Date Type Department Care Team Description 01/29/2024 2:00 PM EST Office Visit [facility] [address] [place] [address] Russ Davila 01/18/2024 4:00 PM EST Office Visit [facility] D[facility] [address] [place] [address] [phone] Nanda Sanders from Last 3 Months Social History Tobacco Use Types Packs/Day Years Used Date Smoking Tobacco: Never Smokeless Tobacco: Never Tobacco Cessation:Counseling Given: Not Answered Sex and Gender Information Value Date Recorded Sex Assigned at Male 10/18/2023 1:09 PM EDT Legal Sex Male 1:05 PM EDT Gender Identity Male 10/18/2023 1:09 PM EDT Sexual Orientation Choose not to disclose 2023 1:09 PM EDT Last Filed Vital Signs Vital Sign Reading Time Taken Comments Blood Pressure 152/101 01/18/2024 3:55 PM EST Pulse 102 01/18/2024 3:55 PM EST Temperature - - Respiratory Rate - - Oxygen Saturation - - Inhaled Oxygen Concentration - - Weight - - Height - - Body Mass Index - - Plan of Treatment Upcoming Encounters Date Type Department Care Team (Late st Contact Info) Description 07/24/2024 1:00 PM EDT Office Visit [facility] [address] [place] [address] Kit Christianson Health Maintenance Due Date Last Done Comments CT Colonography 1954 Colonoscopy 1954 Colorectal Cancer Screening 1954 Depression Screening 1954 FIT DNA/Cologuard 1954 FIT 1954 FOBT 1954 Lipid Panel 1954 SDOH Screening 1954 Sigmoidoscopy 1954 Alcohol/Substance Use Screening 1966 Hepatitis C Screening 1972 DTaP/Tdap/Td Vaccines (1 - Tdap) 03/10/2004 03/09/2004 Zoster Vaccines (1 of 2) 2004 COVID-19 Vaccine ( season) 2023 12/15/2022, 11/02/2021, 04/28/2021, Additional history exists Dental Prophylaxis 07/19/2024 01/18/2024 Dental Oral Exam 07/30/2024 01/29/2024 Dental X-Ray: Bitewings 01/18/2025 01/18/2024 Tobacco Screening 01/28/2025 01/29/2024 Dental X-Ray: Full Mouth 01/18/2027 01/18/2024 RSV Patients and Patients Aged 60 years or older (1 - 1-dose 75+ series) 2029 Pneumococcal Vaccine: 65+ Years Completed 12/06/2021 Influenza Vaccine Completed 11/17/2023, , 10/20/2021, Additional history exists HIB Vaccines Aged Out No longer eligi [...] patient's age to complete this topic Meningococcal Vaccine Aged Out No helen sowmya eligible based on patient's age to complete this topic RSV under 20 months Aged Out No longe r eligible based on patient's age to complete this topic Rotavirus Vaccines Aged Out No longer eligible based on patient's age to complete this topic Procedures Procedure Name Priority Date/Time Associated Diagnosis Comments ADJUNCTIVE GENERAL SERVICES - PROFESSIONAL VISITS - CASE PRESENTATION, SUBSEQUENT TO DETAILED AND EXTENSIVE TREATMENT PLANNING Routine 01/29/2024 2:00 PM EST COMPREHENSIVE ORAL EVALUATION - NEW OR ESTABLISHED PATIENT Routine 01/29/2024 2:00 PM EST ADJUNCTIVE GENERAL SERVICES - PROFESSIONAL VISITS - CASE PRESENTATION, SUBSEQUENT TO DETAILED AND EXTENSIVE TREATMENT PLANNING Routine 01/18/2024 4:00 PM EST DIAGNOSTIC - DIAGNOSTIC IMAGING - INTRAORAL - COMPREHENSIVE SERIES OF RADIOGRAPHIC IMAGES Routine 01/18/2024 4:00 PM EST PROPHYLAXIS - ADULT Routine 01/18/2024 4 :00 PM EST 2,3,12 PARTIAL DENTURE - RESIN Routine 01/18/2024 12:00 AM EST 4 MOD AMALGAM FILLING Routine 01/18/2024 12:00 AM EST 13 DO AMALGAM FILLING Routine 01/18/2024 12:00 AM EST 14 MOL AMALGAM FILLING Routine 12:00 AM EST 15 O AMALGAM FILLING Routine 01/18/2024 12:00 AM EST 20 MOD AMALGAM FILLING Routine 12:00 AM EST 29 DO AMALGAM FILLING Routine 01/18/2024 12:00 AM EST 31 ROOT CANAL Routine 01/18/2024 12:00 AM EST 30 ROOT CANAL Routine 01/18/2024 12:00 AM EST 30 PFM CROWN Routine 01/18/2024 12:00 AM EST 31 PFM CROWN Routine 01/18/2024 12:00 AM EST 32 EXTRACTION Routine 01/18/2024 12:00 AM EST 19 EXTRACTION Routine 01/18/2024 12:00 AM EST 18 EXTRACTION Routine 01/18/2024 12:00 AM EST 17 EXTRACTION Routine 01/18/2024 12:00 AM EST 16 EXTRACTION Routine 01/18/2024 12:00 AM EST 12 EXTRACTION Routine 01/18/2024 12:00 AM EST 3 EXTRACTION Routine 01/18/2024 12:00 AM EST 2 EXTRACTION Routine 01/18/2024 12:00 AM EST 1 EXTRACTION Routine 01/18/2024 12:00 AM EST from Last 3 Months Insurance DENTAL - HSN FULL (MEDICAID)
== END 2024-03-05 14:21 | disposition home or self-care (01) ==
PROVIDERS: PCP Internal Medicine; Visit Provider Internal Medicine
DX: Z00.00 Encounter for general adult medical examination without abnormal findings (principal); F41.1 Generalized anxiety disorder

== ENCOUNTER → 2024-03-05 12:52 | Outpatient (BNVA) | payer MEDICARE, MEDICAID, SELFPAY | PROVIDERS: PCP Internal Medicine; Visit Provider Internal Medicine | DX: Z00.01 Encounter for general adult medical examination with abnormal findings (principal); F41.1 Generalized anxiety disorder; I10 Essential (primary) hypertension | CPT/HCPCS: 96127; 99397 ==

== ENCOUNTER 2024-04-05 14:18 | Outpatient (AMB) | payer MEDICARE, MEDICAID, SELFPAY ==
--- NOTE | 2024-04-05 14:55 | A.OFFPSYCH_ITS ---
Intake Intake Visit Reasons: consultation Accounts Payable Accountant Required: No Allergies Doxycycline Calcium Allergy (Unknown, Verified 03/05/24 13:54) Abdominal Pain Medication List - Last Reconciled 04/05/24 by Mitra Santos APRN doxylamine succinate (Unisom (doxylamine)) 25 mg PO BEDTIME PRN melatonin 10 mg PO BEDTIME PRN meloxicam 15 mg PO DAILY multivitamin 1 tab PO DAILY HPI- Psychiatric Chief Complaint: consultation HPI Narrative: referred by PCP for evaluation of anxiety pt has had trial of meds including seroquel, buspar, wellbutrin, prozac, lexapro and hydroxyzine for anxiety and sleep with no benefit or too much sedatio reports hydroxyzine caused shakinesss and headaches pt reports stress due to tendonitis and trigger finger He report loneliness due to being the last relative in his family alive; says james arellano diesd in 2019 and fahtetr years ago. he has no sibs and a close friend 2 years ago. He deoes have group activities that he does on regular basis such as [employer]making club that meetsonce a month. PHQ9= 7 and GAD7= 7. Denies SI or HI Past Psychiatric History: PCP rx . denies IPLOC Subjective Subjective Subjective Medication Compliance: No Side effects from medications: Yes Mental Status Exam Mental Status Exam Patient Appearance: Disheveled Patient Orientation: Person, Place and Time Level of Consciousness: Awake and Appropriate Patient Behavior: Cooperative, Restless and Anxious Mood Description: Anxious Affect Description: Anxious Patient Cognition Impaired: No Ability to Follow Directions: Good Speech Pattern: Rambling Memory Description: Intact Hallucinations: None Delusions: Not Present Thought Process: Distracted Thought Content: positive for Circumstantial Judgement: Fair Assessment and Plan Assessment & Plan (1) Generalized anxiety disorder: Status: Acute Code(s): F41.1 - Generalized anxiety disorder Plan trial of mirtazepine 7.5mg at bedtime return in 4 weeks Medications: New mirtazapine 7.5 mg PO BEDTIME 30 tabs 0RF Counseling and coordination of Care Pt. Self Management counseling: Maintenance-social rhythm, Mod caffeine/ETOH intake and Nutrition education and improvement Medication management counseling: Effectiveness, Side effects, Dosing range, Duration and Drug interaction Diagnosis and Prognosis Counseling: Accuracy of diagnosis, Prognosis over time, Impact of diagnosis on life functions and Adequacy of current interventions Details: I spent 70 minutes reviewing the record, seeing the patient and documenting in the medical record. Counseling provided to the patient/caregiver as outlined below. Addressed patient/caregiver concerns regarding current medication regime including effective adherence. Addressed patient/caregiver concerns regarding diagnosis and prognosis including accuracy of diagnosis, prognosis over time, impact of diagnosis. Addressed patient/caregiver concerns regarding impact of recent stressors. [facility] Medical History (Updated 03/11/24 @ 01:03 by Azeb Lee MD) Generalized anxiety disorder Chronic use of opiate drug for therapeutic purpose Vaccination declined by patient Lumbar spinal stenosis Essential hypertension Surgical History S/P trigger finger release History of arthroscopy of right shoulder Family History Other No significant family history Social History Housing: House Patient Tobacco Use Status: Never used Tobacco e-Cigarette/Vaping Use: Never Used Second Hand Smoke Exposure: No service: No Current occupational status: retired Cognitive needs: No Hearing needs: No Vision needs: Yes Social History: lives alone retired Substance History: denies Trauma History: denies Coding Level of Care Code Psych Diag Eval w/Med (81155) Diagnoses Generalized anxiety disorder F41.1
--- OUTSIDE RECORDS SUMMARY | 2024-04-05 16:28 | XMS_ITS | Clinical Summary ---
Author Organization [facility] it Address [address] [place] [address] Care Team Providers Care Assistant Chief Of Police Name Role Phone Unavailable Primary Care Provider [...] Recorded Sex Assigned at Not on file Legal Sex Male 7:12 PM EST Gender Identity Not on file Sexual Orientation Not on file Obstetrics History Plan of Treatment Health Maintenance Due Date Last Done Comments DTaP,Tdap,and Td Vaccines (1 - Tdap) 1973 Pneumococcal Vaccine: 50+ Years (1 of 1 - PCV) 2004 Zoster Vaccines (1 of 2) 2004 COVID-19 Vaccine ( - 2023-2 5 season) [...] patient's age to complete this topic Meningococcal B Vacine Aged Out No lo nger eligible based on patient's age to complete this topic RSV Immunization Patients Under 20 months Aged Out No longer eligible b ased on patient's age to complete this topic Varicella Vaccines Aged Out No longer eligible based on patient's age to complete this topic
--- OUTSIDE RECORDS SUMMARY | 2024-04-05 16:28 | XMS_ITS | Clinical Summary ---
Author Organization [employer] Address [address] [place] [address] [address] [place] [address] Care Team Providers Care Carpet Floor Layer Apprentice Name Role Phone Unavailable Primary Care Provider Unavailabl e Allergies No known active allergies Medications hydrOXYzine HCl (Atarax) 10 MG tablet Take by mouth. Active Active Problems No known active problems Encounters Date Type Department Care Team Description 01/29/2024 2:00 PM EST Office Visit [facility]ULT [facility] [address] [place] [address] Russ Davila 01/18/2024 4:00 PM EST Office Visit [facility] D[facility]AL [address] [place] [address] [phone] Nanda Sanders from Last 3 Months Social [...] Description 07/24/2024 1:00 PM EDT Office Visit [facility] [address] [place] [address] Kit Christianson Health Maintenance Due Date Last [...] - 1-dose 75+ series) 2029 Pneumococcal Vaccine: 50+ Years Completed 12/06/2021 Influenza Vaccine Completed 11/17/2023, [...] Procedure Name Priority Date/Time Associated Diagnosis Comments CASE PRESENTATION, DETAILED AND EXTENSIVE TREATMENT PLANNING Routine 01/29/2024 2:00 PM EST COMPREHENSIVE ORAL EVALUATION - NEW OR ESTABLISHED PATIENT Routine 01/29/2024 2:00 PM EST CASE PRESENTATION, DETAILED AND EXTENSIVE TREATMENT PLANNING Routine 01/18/2024 4:00 PM EST INTRAORAL - COMPLETE SERIES OF RADIOGRAPHIC IMAGES Routine 01/18/2024 4:00 [...]
== END 2024-04-05 15:36 | disposition home or self-care (01) ==
LOC: HO.HOP 14:18
PROVIDERS: PCP Internal Medicine; Visit Provider Clinical Nurse Specialist Psychiatric/Mental Health
DX: F41.1 Generalized anxiety disorder (principal)
CPT/HCPCS: 90792

== ENCOUNTER → 2024-04-05 14:18 | Outpatient (BNVA) | payer MEDICARE, MEDICAID, SELFPAY | PROVIDERS: PCP Internal Medicine; Visit Provider Clinical Nurse Specialist Psychiatric/Mental Health | DX: F41.1 Generalized anxiety disorder (principal) | CPT/HCPCS: 90792 ==

== ENCOUNTER 2024-04-30 13:12 | Outpatient (AMB) | payer MEDICARE, MEDICAID, SELFPAY ==
--- NOTE | 2024-04-30 14:02 | MHC.OFFVISPS ---
Intake Intake Visit Reasons: f/u consultation Food Safety Field Specialist Required: No Allergies Doxycycline Calcium Allergy (Unknown, Verified 03/05/24 13:54) Abdominal Pain Medication List - Last Reconciled 04/30/24 by Mitra Santos APRN meloxicam 15 mg PO DAILY mirtazapine 7.5 mg PO BEDTIME multivitamin 1 tab PO DAILY HPI- Psychiatric Chief Complaint: f/u consultation HPI Narrative: pt reports improvement; he likes the remeron 7.5mg at bedtime. He denies sisde effects; hereports it helps him sleep and he is not 'groggy' in am. Pt not taking every night as he fears withdrawal or addicition and wanting to test how he feels off it; discussed that if he takes every night it will help with anxietyand mood more. His PHQ9= 6 and GAD7 = 2. He is feeling better overall. he is engaged in his hobbies and looking forward to a show of[employer] work in June. NO SI or HI. He would like to try taking every night and also try increasing to 1.5 tabs . Discussed he will return one more visist and then pcp will take over prescribing Past Psychiatric History: PCP rx . denies IPLOC Subjective Subjective Subjective Medication Compliance: Yes Side effects from medications: No Review of Systems Medical Review of Systems: unchanged Mental Status Exam Mental Status Exam Patient Appearance: Appropriate Patient Orientation: Person, Place, Time and Situation Level of Consciousness: Awake, Appropriate and Alert Patient Behavior: Appropriate and Cooperative Mood Description: Cheerful Affect Description: Cheerful Patient Cognition Impaired: No Ability to Follow Directions: Good Speech Pattern: Clear, Perseverating (still processing his experience with opiates and pain) and Coherent Memory Description: Intact Hallucinations: None Delusions: Not Present Thought Process: Intact and Rumination Thought Content: positive for Intact and positive for Preoccupation Judgement: Good Assessment and Plan Assessment & Plan (1) Generalized anxiety disorder: Status: Acute Code(s): F41.1 - Generalized anxiety disorder (2) 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 fear: Status: Acute Code(s): F51.05 - Insomnia due to other mental disorder; F40.9 - Phobic anxiety disorder, unspecified Plan continue remeron 7.5mg at bedtime may increase to 1.5 or 2 tabs at bedtime follow up in 4 weeks Counseling and coordination of Care Pt. Self Management counseling: Sleep hygiene, General coping skills and Problem solving Medication management counseling: Effectiveness, Side effects, Dosing range, Duration, Drug interaction and Adherence Diagnosis and Prognosis Counseling: Accuracy of diagnosis, Prognosis over time, Impact of diagnosis on life functions, Impact of family relationship, Problematic behaviors secondary to diagnosis and Adequacy of current interventions Details: I spent 35 minutes reviewing the record, seeing the patient and documenting in the medical record. Counseling provided to the patient/caregiver as outlined below. Addressed patient/caregiver concerns regarding current medication regime including effective adherence. Addressed patient/caregiver concerns regarding diagnosis and prognosis including accuracy of diagnosis, prognosis over time, impact of diagnosis. Addressed patient/caregiver concerns regarding impact of recent stressors. [facility] Medical History (Updated 04/30/24 @ 14:09 by Mitra Santos APRN) Generalized anxiety disorder Chronic use of opiate drug for therapeutic purpose Vaccination declined by patient Lumbar spinal stenosis Essential hypertension Surgical History S/P trigger finger release History of arthroscopy of right shoulder Family History Other No significant family history Social History Housing: House Patient Tobacco Use Status: Never used Tobacco e-Cigarette/Vaping Use: Never Used Second Hand Smoke Exposure: No service: No Current occupational status: retired Cognitive needs: No Hearing needs: No Vision needs: Yes Social History: lives alone retired Substance History: denies Trauma History: denies Coding Level of Care Code Est Pt Level 4 (58067) Diagnoses Generalized anxiety disorder F41.1 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 fear F51.05; F40.9
--- OUTSIDE RECORDS SUMMARY | 2024-04-30 15:59 | XMS_ITS | Clinical Summary ---
Author Organization [employer] Address [address] [facility] [address] [place] [address] Care Team Providers Care Polisher Eyeglass Frames Name Role Phone Unavailable Primary Care Provider Unavailabl e Allergies No known active allergies Medications hydrOXYzine HCl (Atarax) 10 MG tablet Take by mouth. Active Active Problems No known active problems Social History Tobacco Use Types Packs/Day Years [...] Description 07/24/2024 1:00 PM EDT Office Visit [facility] ADULT D[facility] [address] [place] [phone] Kit Christianson Health Maintenance Due Date Last Done Comments CT Colonography 1954 Colonoscopy 1954 Colorectal Cancer Screening 1954 Depression Screening 1954 FIT DNA/Cologuard 1954 FIT 1954 FOBT 1954 Lipid Panel 1954 SDOH Screening 1954 Sigmoidoscopy 1954 Alcohol/Substance Use Screening 1966 Hepatitis C Screening 1972 DTaP/Tdap/Td Vaccines (1 - Tdap) 03/10/2004 03/09/2004 Zoster Vaccines (1 of 2) 2004 COVID-19 Vaccine (6 - season) 2023 12/15/2022, 11/02/2021, 04/28/2021, Additional history [...] Procedure Name Priority Date/Time Associated Diagnosis Comments COMPREHENSIVE ORAL EVALUATION - NEW OR ESTABLISHED PATIENT Routine 01/29/2024 2:00 PM EST PROPHYLAXIS - ADULT Routine 01/18/2024 4 :00 PM EST INTRAORAL - COMPLETE SERIES OF RADIOGRAPHIC IMAGES Routine 01/18/2024 4:00 PM EST from Last 3 Months or Most Recently Relevant to Health Maintenance Insurance DENTAL - HSN FULL (MEDICAID)
--- OUTSIDE RECORDS SUMMARY | 2024-04-30 15:59 | XMS_ITS | Clinical Summary ---
Author Organization [facility] it Address [address] [place] [address] Care Team Providers Care Mechanical Engineering Manager Name Role Phone Unavailable Primary Care Provider [...]
== END 2024-04-30 14:42 | disposition home or self-care (01) ==
LOC: HO.HOP 13:12
PROVIDERS: PCP Internal Medicine; Visit Provider Clinical Nurse Specialist Psychiatric/Mental Health
DX: F41.1 Generalized anxiety disorder (principal); F51.05 Insomnia due to other mental disorder; F40.9 Phobic anxiety disorder, unspecified
CPT/HCPCS: 99214

== ENCOUNTER → 2024-04-30 13:12 | Outpatient (BNVA) | payer MEDICARE, MEDICAID, SELFPAY | PROVIDERS: PCP Internal Medicine; Visit Provider Clinical Nurse Specialist Psychiatric/Mental Health | DX: F41.1 Generalized anxiety disorder (principal); F51.05 Insomnia due to other mental disorder; F40.9 Phobic anxiety disorder, unspecified | CPT/HCPCS: 99212 ==

== ENCOUNTER 2024-05-30 13:05 | Outpatient (AMB) | payer MEDICARE, MEDICAID, SELFPAY ==
--- NOTE | 2024-05-30 13:41 | MHC.OFFVISPS ---
Intake Intake Visit Reasons: F/U Consultation Medic Technician Required: No Allergies Doxycycline Calcium Allergy (Unknown, Verified 03/05/24 13:54) Abdominal Pain Medication List - Last Reconciled 05/30/24 by Mitra Santos APRN meloxicam 15 mg PO DAILY mirtazapine 7.5 mg PO BEDTIME multivitamin 1 tab PO DAILY HPI- Psychiatric Chief Complaint: F/U Consultation HPI Narrative: pt seen for follow up re: anxiety and insomnia; he is taking remeron 7.5mg at bedtime .PHQ9= 4 down from 7 and GAD7 =1 down from 7. Past Psychiatric History: PCP rx . denies IPLOC Subjective Subjective Subjective Medication Compliance: Yes Side effects from medications: No Review of Systems Medical Review of Systems: unchanged Mental Status Exam Mental Status Exam Patient Appearance: Appropriate Patient Orientation: Person, Place, Time and Situation Level of Consciousness: Awake Patient Behavior: Appropriate Mood Description: Anxious Affect Description: Cheerful and Anxious Patient Cognition Impaired: No Ability to Follow Directions: Good Speech Pattern: Clear and Appropriate Memory Description: Intact Hallucinations: None Delusions: Not Present Thought Process: Intact Thought Content: positive for Intact and positive for Loose Associations Judgement: Fair Assessment and Plan Assessment & Plan (1) Generalized anxiety disorder: Status: Acute Code(s): F41.1 - Generalized anxiety disorder (2) 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 fear: Status: Acute Code(s): F51.05 - Insomnia due to other mental disorder; F40.9 - Phobic anxiety disorder, unspecified Plan continue remeron 7.5mg at bedtime follow up with PCP Medications: Refilled mirtazapine 7.5 mg PO BEDTIME 90 tabs 2RF Counseling and coordination of Care Pt. Self Management counseling: General coping skills, Greif counseling and Problem solving Medication management counseling: Effectiveness, Side effects, Dosing range, Duration, Drug interaction and Adherence Diagnosis and Prognosis Counseling: Accuracy of diagnosis, Prognosis over time and Adequacy of current interventions Details: I spent 35 minutes reviewing the record, seeing the patient and documenting in the medical record. Counseling provided to the patient/caregiver as outlined below. Addressed patient/caregiver concerns regarding current medication regime including effective adherence. Addressed patient/caregiver concerns regarding diagnosis and prognosis including accuracy of diagnosis, prognosis over time, impact of diagnosis. Addressed patient/caregiver concerns regarding impact of recent stressors. [facility] Medical History (Updated 04/30/24 @ 14:09 by Mitra Santos APRN) Generalized anxiety disorder Chronic use of opiate drug for therapeutic purpose Vaccination declined by patient Lumbar spinal stenosis Essential hypertension Surgical History S/P trigger finger release History of arthroscopy of right shoulder Family History Other No significant family history Social History Housing: House Patient Tobacco Use Status: Never used Tobacco e-Cigarette/Vaping Use: Never Used Second Hand Smoke Exposure: No service: No Current occupational status: retired Cognitive needs: No Hearing needs: No Vision needs: Yes Social History: lives alone retired Substance History: denies Trauma History: denies Coding Level of Care Code Est Pt Level 4 (36249) Diagnoses Generalized anxiety disorder F41.1 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 fear F51.05; F40.9
--- OUTSIDE RECORDS SUMMARY | 2024-05-30 15:23 | XMS_ITS | Clinical Summary ---
Author Organization [employer] Address [address] [facility] 7t [place] [address] Care Team Providers Care Breakdown Person Name Role Phone Unavailable Primary Care Provider [...] Description 07/24/2024 1:00 PM EDT Office Visit [facility] ADULT DENTAL [address] [place] [phone] Kit Christianson Health Maintenance Due Date Last [...] Most Recently Relevant to Health [place] [id number] DENTAL - HSN FULL (MEDICAID)
--- OUTSIDE RECORDS SUMMARY | 2024-05-30 15:23 | XMS_ITS | Clinical Summary ---
Author Organization [facility] Address [address] [place] [address] Care Team Providers Care Head Of Advertising Name Role Phone Unavailable Primary Care Provider [...] - 2023-2 5 season) 2023 Influenza Vaccine (Season Ended) 2024 01/01/2006, 12/10/2004 RSV Immunization Adult Patients (1 - 1-dose 75+ series) 2029 HIB [...] age to complete this topic Meningococcal B Vaccine Aged Out No l onger eligible based on patient's age to complete this topic RSV Immunization Patients Under 20 months Aged Out No longer eligible b ased on patient's age to complete this topic Varicella Vaccines Aged Out No longer eligible based on patient's age to complete this topic
== END 2024-05-30 15:28 | disposition home or self-care (01) ==
LOC: HO.HOP 13:05
PROVIDERS: PCP Internal Medicine; Visit Provider Clinical Nurse Specialist Psychiatric/Mental Health
DX: F41.1 Generalized anxiety disorder (principal); F51.05 Insomnia due to other mental disorder; F40.9 Phobic anxiety disorder, unspecified
CPT/HCPCS: 99214

== ENCOUNTER → 2024-05-30 13:05 | Outpatient (BNVA) | payer MEDICARE, MEDICAID, SELFPAY | PROVIDERS: PCP Internal Medicine; Visit Provider Clinical Nurse Specialist Psychiatric/Mental Health | DX: F41.1 Generalized anxiety disorder (principal); F51.05 Insomnia due to other mental disorder; F40.9 Phobic anxiety disorder, unspecified; Z71.89 Other specified counseling | CPT/HCPCS: 99212 ==

== ENCOUNTER 2024-06-26 06:33 | Outpatient (REF) | payer MEDICARE, MEDICAID, SELFPAY ==
--- OUTSIDE RECORDS SUMMARY | 2024-06-26 06:35 | XMS_ITS | Clinical Summary ---
Author Organization [employer] Address [address] [facility] 7t [place] [address] Care Team Providers Care Machine Engraver Name Role Phone Unavailable Primary Care Provider [...] Description 07/24/2024 1:00 PM EDT Office Visit [facility] ADULT DENTAL [address] [place] [phone] Kit Christianson Health Maintenance Due Date Last [...]
--- OUTSIDE RECORDS SUMMARY | 2024-06-26 06:35 | XMS_ITS | Clinical Summary ---
Author Organization [facility] Address [address] [place] [address] Care Team Providers Care Senior National Account Manager Name Role Phone Unavailable Primary Care [...]
[2024-06-26 10:10] LABS: Hematocrit 44.5 % (42.0-52.0)
[2024-06-26 11:36] LABS: Anion Gap 12 (12-20); Blood Urea Nitrogen 15 mg/dL (9-16); Carbon Dioxide 25 mmol/L (22-29); Chloride 105 mmol/L (96-108); Cholesterol 131 mg/dL (<200); Estimated Glomerular Filt Rate > 60; Glucose Fasting 97 mg/dL (60-99); HDL Cholesterol 40 mg/dL (>40); LDL Cholesterol Calculated 78 mg/dL (<100); Potassium 4.4 mmol/L (3.3-5.1); Sodium 138 mmol/L (135-145); Triglycerides 66 mg/dL (<150)
[2024-06-26 11:50] LABS: PSA,Total (Free>4and<10) 2.44 ng/mL (0.00-4.00)
== END 2024-06-26 06:34 | disposition home or self-care (01) ==
LOC: HO.HMGCLDS 06:33
PROVIDERS: PCP Internal Medicine; Visit Provider Internal Medicine
DX: Z00.01 Encounter for general adult medical examination with abnormal findings (principal); Z13.220 Encounter for screening for lipoid disorders; Z13.1 Encounter for screening for diabetes mellitus; Z12.5 Encounter for screening for malignant neoplasm of prostate
CPT/HCPCS: 36415; 80048; 80061; 84153; 85014; 85018

== ENCOUNTER 2024-12-18 12:53 | Outpatient (AMB) | payer MEDICARE, MEDICAID, SELFPAY ==
--- NOTE | 2024-12-18 12:59 | MHC.PC.OV ---
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: No Allergies Doxycycline Calcium Allergy (Unknown, Verified 12/18/24 13:25) Abdominal Pain Medication List - Last Reconciled 12/18/24 by Azeb Lee MD mirtazapine 7.5 mg PO BEDTIME multivitamin 1 tab PO DAILY Tobacco use date assessed: 12/18/24 Fall risk assessment: No Falls in past year Last assessed Fall Risk: 12/18/24 Dental Screening Dental Screen Date: 12/18/24 Did you have a dental visit in the last 12 months?: No Did you have a dental problem in the last 6 months where you did not have access to dental care?: No Was dental information given to patient?: Patient has dentist HPI med management - HPI Details 69-year-old male with generalized anxiety disorder, causing insomnia, currently on mirtazapine 7.5 mg per tablet , which she states has been helping. There are days however that he has a take 1-1/2 tablet of mirtazapine. He denies side effects, helps him sleep and does not wake up groggy' in am. He tries not to take it every night, as he fears withdrawal or addicition . He is feeling better overall. [facility] Medical History Generalized anxiety disorder Chronic use of opiate drug for therapeutic purpose Vaccination declined by patient Lumbar spinal stenosis Essential hypertension Surgical History S/P trigger finger release History of arthroscopy of right shoulder Family History Other No significant family history Social History Housing: House Patient Tobacco Use Status: Never used Tobacco e-Cigarette/Vaping Use: Never Used Second Hand Smoke Exposure: No service: No Current occupational status: retired Cognitive needs: No Hearing needs: No Vision needs: Yes Questionnaire PHQ-9 Over the last 2 weeks, how often have you been bothered by any of the following problems? 1. Little interest or pleasure in doing things: not at all 2. Feeling down, depressed, or hopeless: not at all 3. Trouble falling or staying asleep, or sleeping too much: several days 4. Feeling tired or having little energy: not at all 5. Poor appetite or overeating: not at all 6. Feeling bad about yourself - or that you are a failure or have let yourself or your family down: not at all 7. Trouble concentrating on things, such as reading the newspaper or watching television: several days 8. Moving or speaking so slowly that other people could have noticed. Or the opposite - being so fidgety or restless that you have been moving around a lot more than usual: nearly every day 9. Thoughts that you would be better off or of hurting yourself in some way: not at all Total score: 5 Depression Screening Interpretation: Negative Depression Screening Done: Yes 57789 - PHQ-9 Billing: Yes Source: Developed by Drs. Mason Devine, Becky Jay, Antonio Renee and colleagues, with an educational lexus from [employer]. Thrive Questionnaire Date Thrive assessed: 12/18/24 I am a: Patient What is your living situation today?: I choose not to answer this question Within the past 12 months, did the food you bought not last and you didn't have the money to get more?: I choose not to answer this question Within the past 12 months, did you worry whether your food would run out before you got money to buy more?: I choose not to answer this question Do you have trouble paying for medicines?: I choose not to answer this question Do you have trouble getting transportation to medical appointments?: I choose not to answer this question Do you have trouble paying your heating and electricity bill?: I choose not to answer this question Do you have trouble taking care of your child, family member or friend?: I choose not to answer this question Do you have trouble with day-to-day activities such as bathing, preparing meals, shopping, managing finances, etc.?: I choose not to answer this question Are you currently unemployed and looking for a job?: I choose not to answer this question Are you interested in more education?: I choose not to answer this question Please select the resources that you would like help with: None Currently or been in a relationship where the following occur: No concerns reported THRIVE Score: 0 AUDIT C Alcohol Use Questionnaire (AUDIT-C) 1. How often do you have a drink containing alcohol?: 2-3 times a week 2. How many drinks containing alcohol do you have on a typical day when you are drinking?: 1 or 2 3. How often do you have six or more drinks on one occasion?: Less than monthly Total Score: 4 ANNMARIE-7 AMB Questionnaire ANNMARIE-7 Date ANNMARIE - 7 assessed: 12/18/24 Feeling nervous, anxious, or on edge: 0 = Not at all Not being able to stop or control worryin = Not at all Worrying too much about different things: 1 = Several days Trouble relaxin = Not at all Being so restless that it is hard to sit still: 0 = Not at all Becoming easily annoyed or irritable: 1 = Several days Feeling afraid as if something awful might happen: 0 = Not at all Total ANNMARIE-7 score (0-4 normal; 5-9 mild; 10-14 moderate; 15-21 severe): 2 Source: Developed by Drs. Mason Devine, Becky Jay, Antonio Renee and colleagues, with an educational lexus from [employer]. Review of Systems Const All systems reviewed & are unremarkable except as noted in HPI and below Physical exam (Primary Care) Vital Signs: Last Vital Signs Pulse 98 12/18/24 13:00 Resp 16 12/18/24 13:00 BP 135/80 12/18/24 13:00 Pulse Ox 98 12/18/24 13:00 Oxygen Delivery Method Room Air 12/18/24 13:00 BMI result Body Mass Index 26.9 Tobacco/Smoking Status: Tobacco use Status Tobacco use date assessed 12/18/24 12/18/24 13:02 Patient Tobacco Use Status Never used Tobacco 12/18/24 13:02 e-Cigarette/Vaping Use Never Used 12/18/24 13:02 PHQ-9: PHQ-9 Score PHQ-9: Total score 5 12/18/24 13:37 Depression Screening Interpretation: Negative Thrive Assessment: Date of Thrive Assessment Date Thrive assessed 12/18/24 12/18/24 13:09 Currently or been in a relationship where the following occur: No concerns reported Const General: no acute distress and alert Orientation/consciousness: patient oriented x3 Eyes General: appearance normal, both eyes and all related structures Neck Neck: Yes full ROM, Yes no lymphadenopathy and Yes supple Resp Effort & Inspection: normal respiratory effort and able to speak in complete sentences Auscultation: clear to auscultation bilaterally Cardio Rate: regular rate Rhythm: regular rhythm Heart sounds: S1 normal heart sound present and S2 normal heart sound present Neuro General: patient oriented x3, gait normal, tone normal, moves all extremities, Normal light touch and pain sensation and no focal motor deficits Cognition (Neuro): normal cognition Psych Appearance: grossly normal and well kempt Mental Status: mental status grossly normal Speech and movement: Normal speech and movement present Affect: normal affect Attitude: cooperative Coding Level of Care Code Est Pt Level 4 (94015) Diagnoses Generalized anxiety disorder F41.1 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 fear F51.05; F40.9 Additional Codes PHQ-9 - 54877 - PHQ-9 Billing: Yes ([id number]) Assessment & Plan Assessment & Plan (1) Generalized anxiety disorder: Code(s): F41.1 - Generalized anxiety disorder Category: Medical Plan: Mirtazapine dose increased to 7.5 mg tablet may take 1-1-1/2 tablet at bedtime as needed will see him back for follow-up in April 2025 (2) 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 fear: Code(s): F51.05 - Insomnia due to other mental disorder; F40.9 - Phobic anxiety disorder, unspecified Category: Medical Plan: Mirtazapine dose increased to 7.5 mg tablet, take 1 or 1-1/2 tablet at bedtime as needed for anxiety attacks and insomnia Medications: Changed From mirtazapine 7.5 mg PO BEDTIME 90 tabs 2RF F40.9 - Phobic anxiety disorder, unspecified, F41.1 - Generalized anxiety disorder, F51.05 - Insomnia due to other mental disorder To mirtazapine 11.25 mg (1.5 x 7.5 mg) PO BEDTIME 135 tabs 2RF F40.9 - Phobic anxiety disorder, unspecified, F41.1 - Generalized anxiety disorder, F51.05 - Insomnia due to other mental disorder
[2024-12-18 13:00] VITALS: BP 135/80; PULSE 98; RESP 16; O2SAT 98; BMI 26.9
--- OUTSIDE RECORDS SUMMARY | 2024-12-18 15:30 | XMS_ITS | Clinical Summary ---
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
--- OUTSIDE RECORDS SUMMARY | 2024-12-18 15:30 | XMS_ITS | Clinical Summary ---
Author Organization [employer] Address [address] [place] [address] Care Team Providers Care Consulting Sme Name Role Phone Unavailable Primary Care Provider Unavailabl e Allergies No known active allergies Medications hydrOXYzine HCl (Atarax) 10 MG tablet Take by mouth. Active mirtazapine (Remeron) 7.5 MG tablet Take 7.5 mg by mouth at bedtime. 04/30/2024 Active Active Problems No known active problems [...] Sign Reading Time Taken Comments Blood Pressure 140/80 07/24/2024 12:59 PM EDT Pulse 75 07/24/2024 12:59 PM EDT Temperature - - Respiratory Rate - - Oxygen Saturation - - Inhaled Oxygen Concentration - - Weight - - Height - - Body Mass Index - - Plan of Treatment Upcoming Encounters Date Type Department Care Team (Late st Contact Info) Description 01/24/2025 2:15 PM EST Office Visit [facility] [address] [place] [address] Kit Christianson Health Maintenance Due Date Last Done Comments CT Colonography 1954 Colonoscopy 1954 Colorectal Cancer Screening 1954 Depression Screening 1954 FIT DNA/Cologuard 1954 FIT 1954 FOBT 1954 Lipid Panel 1954 SDOH Screening 1954 Sigmoidoscopy 1954 Alcohol/Substance Use Screening 1966 Hepatitis C Screening 1972 DTaP/Tdap/Td Vaccines (1 - Tdap) 03/10/2004 03/09/2004 Zoster Vaccines (1 of 2) 2004 COVID-19 Vaccine (6 - season) 2024 12/15/2022, 11/02/2021, 04/28/2021, Additional history exists Influenza Vaccine (#1) 2024 , 12/15/2022, 10/20/2021, Additional history exists Dental X-Ray: Bitewings 01/18/2025 01/18/2024 Dental Oral Exam 01/24/2025 07/24/2024, 01/29/2024 Dental Prophylaxis 01/24/2025 07/24/2024, 01/18/2024 Tobacco Screening 07/24/2025 07/24/2024 Dental X-Ray: Full Mouth 01/18/2027 01/18/2024 RSV Patients and Patients Aged 60 years or older (1 - 1-dose 75+ series) 2029 Pneumococcal Vaccine: 50+ Years Completed 12/06/2021 HIB Vaccines Aged Out No longer eligi [...] Procedure Name Priority Date/Time Associated Diagnosis Comments PROPHYLAXIS - ADULT Routine 07/24/2024 1 :00 PM EDT Abfraction Crowding of teeth PERIODIC ORAL EVALUATION - ESTABLISHED PATIENT Routine 07/24/2024 1:00 PM EDT Abfraction Crowding of teeth INTRAORAL - COMPLETE SERIES OF RADIOGRAPHIC IMAGES Routine 01/18/2024 4:00 PM EST from Last 3 Months or Most Recently Relevant to Health [place] [id number] DENTAL - HSN FULL (MEDICAID) [place] [id number] [place] [id number]
== END 2024-12-18 13:56 | disposition home or self-care (01) ==
LOC: HO.HMCC 12:54
PROVIDERS: PCP Internal Medicine; Visit Provider Internal Medicine
DX: F41.1 Generalized anxiety disorder (principal); F51.05 Insomnia due to other mental disorder; F40.9 Phobic anxiety disorder, unspecified

== ENCOUNTER → 2024-12-18 12:53 | Outpatient (BNVA) | payer MEDICARE, MEDICAID, SELFPAY | PROVIDERS: PCP Internal Medicine; Visit Provider Internal Medicine | DX: F41.1 Generalized anxiety disorder (principal); F51.05 Insomnia due to other mental disorder; F40.9 Phobic anxiety disorder, unspecified | CPT/HCPCS: 96127; 99212 ==